=== PATIENT | female | born 1965 | race Caucasian/White ===

== ENCOUNTER → 2019-05-02 11:31 | Outpatient (BNVA) | payer MEDICARE, OTHER, SELFPAY | PROVIDERS: Family Provider Family Medicine; PCP Family Medicine; Visit Provider Social Worker Clinical | DX: F43.12 Post-traumatic stress disorder, chronic (principal); F33.2 Major depressive disorder, recurrent severe without psychotic features; F41.1 Generalized anxiety disorder | CPT/HCPCS: 90834 ==

== ENCOUNTER → 2019-06-13 11:45 | Outpatient (BNVA) | payer MEDICARE, OTHER, SELFPAY | PROVIDERS: Family Provider Family Medicine; PCP Family Medicine; Visit Provider Social Worker Clinical | DX: F41.1 Generalized anxiety disorder (principal); F43.12 Post-traumatic stress disorder, chronic; F33.2 Major depressive disorder, recurrent severe without psychotic features | CPT/HCPCS: 90834 ==

== ENCOUNTER → 2019-06-26 15:18 | Outpatient (BNVA) | payer MEDICARE, OTHER, SELFPAY | PROVIDERS: Family Provider Family Medicine; PCP Family Medicine; Visit Provider Social Worker Clinical | DX: F41.1 Generalized anxiety disorder (principal); F43.12 Post-traumatic stress disorder, chronic | CPT/HCPCS: 90834 ==

== ENCOUNTER → 2019-07-03 08:06 | Outpatient (BNVA) | payer MEDICARE, OTHER, SELFPAY | PROVIDERS: Family Provider Family Medicine; PCP Family Medicine; Visit Provider Social Worker Clinical | DX: F41.1 Generalized anxiety disorder (principal); F43.12 Post-traumatic stress disorder, chronic | CPT/HCPCS: 90832 ==

== ENCOUNTER → 2019-07-17 08:05 | Outpatient (BNVA) | payer MEDICARE, OTHER, SELFPAY | PROVIDERS: Family Provider Family Medicine; PCP Family Medicine; Visit Provider Social Worker Clinical | DX: F41.1 Generalized anxiety disorder (principal); F43.12 Post-traumatic stress disorder, chronic | CPT/HCPCS: 90834 ==

== ENCOUNTER → 2019-07-24 08:03 | Outpatient (BNVA) | payer MEDICARE, OTHER, SELFPAY | PROVIDERS: Family Provider Family Medicine; PCP Family Medicine; Visit Provider Social Worker Clinical | DX: F41.1 Generalized anxiety disorder (principal); F43.12 Post-traumatic stress disorder, chronic | CPT/HCPCS: 90834 ==

== ENCOUNTER → 2019-07-31 08:09 | Outpatient (BNVA) | payer MEDICARE, OTHER, SELFPAY | PROVIDERS: Family Provider Family Medicine; PCP Family Medicine; Visit Provider Social Worker Clinical | DX: F41.1 Generalized anxiety disorder (principal); F43.12 Post-traumatic stress disorder, chronic | CPT/HCPCS: 90834 ==

== ENCOUNTER → 2019-08-08 07:50 | Outpatient (BNVA) | payer MEDICARE, OTHER, SELFPAY | PROVIDERS: Family Provider Family Medicine; PCP Family Medicine; Visit Provider Social Worker Clinical | DX: F41.1 Generalized anxiety disorder (principal); F43.12 Post-traumatic stress disorder, chronic | CPT/HCPCS: 90832 ==

== ENCOUNTER → 2019-08-23 08:05 | Outpatient (BNVA) | payer MEDICARE, OTHER, SELFPAY | PROVIDERS: Family Provider Family Medicine; PCP Family Medicine; Visit Provider Social Worker Clinical | DX: F41.1 Generalized anxiety disorder (principal); F43.12 Post-traumatic stress disorder, chronic | CPT/HCPCS: 90834 ==

== ENCOUNTER → 2019-09-06 08:17 | Outpatient (BNVA) | payer MEDICARE, OTHER, SELFPAY | PROVIDERS: Family Provider Family Medicine; PCP Family Medicine; Visit Provider Social Worker Clinical | DX: F41.1 Generalized anxiety disorder (principal); F43.12 Post-traumatic stress disorder, chronic | CPT/HCPCS: 90834 ==